=== PATIENT | male | born 1980 | race Caucasian/White ===

== ENCOUNTER 2019-04-24 11:53 | Emergency (ER) | payer MEDICAID, SELFPAY ==
[2019-04-24 11:55] VITALS: BP 147/90; PULSE 91; RESP 17; TEMP 37.2; O2SAT 97; BMI 26.9
--- NOTE | 2019-04-24 12:07 | CT_ITS ---
STUDY: CT FACIAL BONES WITHOUT CONTRAST REASON FOR EXAM: Male, 38 years old. Trauma RADIATION DOSAGE (If Supplied By Facility): CTDIvol = ( 29.38 ) mGy, DLP = ( 569.49 ) mGycm TECHNIQUE: The patient was scanned in a multi detector CT scanner. Sagittal and coronal images were reconstructed. Individualized dose optimization techniques were used for this CT. COMPARISON: None. FINDINGS: There is a displaced fracture at the right proximal aspect of the mandible with approximately 4 mm of medial displacement and 6 mm of overlap, as well as a mildly displaced fracture of the left anterolateral aspect of the mandible with approximately 1 to 2 mm of separation. There is facial soft tissue swelling. Visualized portions of the intracranial compartment are normal. Paranasal sinuses are normal in appearance. CT/Sinus/Facial Bone IMPRESSION: Displaced fracture of the right proximal aspect of the mandible as well as fracture of the left anterolateral aspect of the mandible as described above. Electronically Signed: oM Ha, at 13:43 EDT Tel , Service support ,
--- NOTE | 2019-04-24 12:07 | CT_ITS ---
STUDY: CT FACIAL BONES WITHOUT CONTRAST REASON FOR EXAM: Male, 38 years old. Trauma RADIATION DOSAGE (If Supplied By Facility): CTDIvol = ( 29.38 ) mGy, DLP = ( 569.49 ) mGycm TECHNIQUE: The patient was scanned in a multi detector CT scanner. Sagittal and coronal images were reconstructed. Individualized dose optimization techniques were used for this CT. COMPARISON: None. FINDINGS: There is a displaced fracture at the right proximal aspect of the mandible with approximately 4 mm of medial displacement and 6 mm of overlap, as well as a mildly displaced fracture of the left anterolateral aspect of the mandible with approximately 1 to 2 mm of separation. There is facial soft tissue swelling. Visualized portions of the intracranial compartment are normal. Paranasal sinuses are normal in appearance. CT/Coronals Sag Multi Obl 3-D Rec IMPRESSION: Displaced fracture of the right proximal aspect of the mandible as well as fracture of the left anterolateral aspect of the mandible as described above. Electronically Signed: Mo Ha, at 13:43 EDT Tel , Service support ,
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
[2019-04-24] MEDS: Ondansetron 4 MG/2 ML Vial IV (12:28)
[2019-04-24] MEDS: Morphine 4 MG/ML Syringe IV ×2 (12:28→14:17)
[2019-04-24 15:57] VITALS: RESP 18
== END 2019-04-24 15:57 | disposition short-term general hospital (02) ==
LOC: ED 12:43
PROVIDERS: Emergency Provider Emergency Medicine
DX: S02.69XA Fracture of mandible of other specified site, initial encounter for closed fracture (principal); Z72.0 Tobacco use; Y04.2XXA Assault by strike against or bumped into by another person, initial encounter; Y93.89 Activity, other specified; Y92.89 Other specified places as the place of occurrence of the external cause; Y99.8 Other external cause status
CPT/HCPCS: 70486; 76377; 96361; 96374; 96375; 96376; 99284; A4216; J0295; J2405

== ENCOUNTER 2021-04-13 07:00 | Outpatient (RCR) | payer MEDICAID, OTHER, SELFPAY ==
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
--- NOTE | 2021-06-26 11:15 | HP.PT.NRP ---
ZOYA HOLLIS was seen in my office for initial evaluation on 03/27/21. The following Plan of Care was established for this patient: Initial Frequency: 1x/Week Initial Duration: 4-6 Weeks Patient/Client Instruction: Educate patient on: Condition For the Purpose of:: To decrease pain, To increase ROM Therapeutic Exercise to Include: Strength training, Postural training, Flexibilty training For the Purpose of:: To decrease pain, To increase ROM, To improve muscle performance and motor function Manual Therapy Techniques to Include: Mobilization For the Purpose of:: To decrease pain, To increase ROM Thermo therapy (hot pack): Yes For the Purpose of:: To decrease pain This patient was last seen in our office 04/13/21. Pertinent comments regarding their Physical therapy will appear below: Pt seen for two visits and cancelled the last one without rescheduling. at this point, it has been over two months and I will discontinue due to nonattendance. At this point I will be discontinuing this patient from physical therapy. I would be happy to see this patient again in the future if found appropriate by the physician. Thank you! Yohan Nicholas, DPT, OCS, CSCS
== END 2021-04-13 19:00 | disposition home or self-care (01) ==
LOC: PT 07:00
DX: M16.12 Unilateral primary osteoarthritis, left hip (principal)
CPT/HCPCS: 97110; 97140; 97161

== ENCOUNTER 2022-08-02 15:36 | Observation (INO) | payer MEDICAID, SELFPAY ==
[2022-08-02] VITALS (7 sets, daily range): BP systolic 109–131; BP diastolic 66–85; PULSE 56–78; RESP 16–18; TEMP 36.7–37.5; O2SAT 96–99; BMI 24.3; BMI 25.0
--- NOTE | 2022-08-02 | IMM_PTH ---
PATIENT: ZOYA HOLLIS LOC: MS3 U#:[id number] AGE/SX: 42/M ROOM: MD302 RE08/02/[address]: Dr. James Estevez MD : 1980 BED: 1 DIS: 08/03/2022 SPEC #: [id number] RECD: 08/08/22 14:23 STATUS: PREET REQ #: [id number] LESLY: 08/02/22 00:[address]: James Estevez DEPT: IMMUNOHISTOCHEMISTRY RECD BY: Patricia Gamble ENTERED: 08/08/22 14:25 SP TYPE: IMMUNO OTHR DR: No Primary Care Phys Tissues: Appendix, NOS Procedures: Synapto (add) MSH2 (add) MLH-1 (add) MSH6 (add) Anti-PMS2 (add) CD45 (add) CD56 (add) CHROMO (add) CK20 (add) CK7 (add) CK8 (add) TORIBIO-2 (add) HER2 KEN (add) KI-67 (add) P53 (add) TTF1 (add) Pankeratin (initial) CDX2 (add) PHYSICIAN & INSTITUTION [place] [id number] SPECIMEN INFORMATION: Tissue Source: Appendix Clinical Info: Acute appendicitis Specimen Number: [id number] #[id number] CPT code: 02613, 59054 x17 METHODOLOGY: Deparaffinized sections of prefer/formalin-fixed tissue or PAP/DQ stained slides are incubated with monoclonal/polyclonal antibodies/oligonucleotide probes. Localization is made via biotin free immunoperoxidase method. Appropriate controls are performed and reacted as expected. Results on target cell population are indicated in the following table: RESULTS: ANTIBODY / CLONE RESULT Block 4 AE1-3 (AE1/AE3/PCK26) positive CK7 (OV-TL12/30) negative CK8 (25gqtwY60) positive CK20 (KS20.8) positive CD45 (RP2/18) negative CD56 (123C3.D5) negative Chromo (LK2H10) negative Synapto (polyclonal) negative TTF-1 (8G7G3/1) negative Ki-67 (30-9) positive, low Her-2neu (CB11) negative (0) TORIBIO-2 (SP21) positive CDX2 (MRL3696V) positive MLH-1 (M1) positive MSH2 (25D12) positive MSH6 (44) positive PMS2 (XNS1735) positive P53 (DO-7) negative These tests were developed and their performance characteristics determined by [facility]. They may not have been cleared or approved by the U.S. Food and Drug Administration. The FDA has determined that such clearance or approval is not necessary. The above immunohistochemical/dualISH markers are ordered and reviewed by the Pathologist. INTERPRETATION: Appendix, appendectomy: Invasive mucinous adenocarcinoma. Result of Microsatellite Instability Study: Negative (no loss of mismatch protein; no microsatellite instability detected). SJ:gadiel 08/12/2022
--- NOTE | 2022-08-02 | APP_PTH ---
PATIENT: ZOYA HOLLIS LOC: MS3 U#:[id number] AGE/SX: 42/M ROOM: ID302 RE08/02/[address]: Dr. James Estevez MD : 1980 BED: 1 DIS: 08/03/2022 SPEC #: [id number] RECD: 08/04/22 15:51 STATUS: PREET REShasta #: [id number] LESLY: 08/02/22 00:[address]: James Estevez DEPT: SURGICAL PATHOLOGY RECD BY: Shola Nichols ENTERED: 08/06/22 08:47 SP TYPE: APPENDIX OTHR DR: No Primary Care Phys Tissues: Appendix, NOS Procedures: Special Stain Group II Mucicarmine Stain (control) Surgery Specimen Level V HEADER OPERATION: Laparoscopic appendectomy PRE-OP DIAGNOSIS: Acute appendicitis TISSUE SUBMITTED: Appendix MICROSCOPIC DIAGNOSIS Appendix, appendectomy: Invasive mucinous adenocarcinoma. See cancer summary in the comment section. SJ:gadiel 08/12/2022 COMMENT Immunohistochemistry ([id number]) supports the above diagnosis. Mucin stain with matched control is used in the evaluation and tumor cells are positive for mucin. APPENDIX CANCER SUMMARY: Procedure - appendectomy Tumor site ? diffusely involving appendix. Histologic type ? mucinous adenocarcinoma. Histologic grade ? grade 1, well-differentiated Tumor size ? cannot be determined, almost involves full length of the appendix. Tumor deposits ? not identified Tumor extent ? tumor invades through muscularis propria into subserosal,,but does not extend to serosal surface. Lymphvascular invasion ? not identified Perineural invasion - not identified Margins ? proximal margin is free of tumor. Regional lymph nodes ? no lymph nodes are found. Distant metastasis ? not applicable Additional pathologic findings ? acute appendicitis and periappendicitis. Ancillary studies ? [id number]. PATHOLOGIC STAGE: pT3 pNx pMx The above summary is in compliance with [employer] [employer] (CAP) Cancer Protocols Checklist and [place] Joint Committee on Cancer (AJCC), Staging Manual, 7th Ed. This case is discussed with Dr. Estevez on 08/12/22. MICROSCOPIC DESCRIPTION Slides are reviewed. GROSS DESCRIPTION Received in fixative is one container labeled with the patient's name and designated appendix. The specimen consists of an appendix measuring 6 cm in length and up to 1 cm in diameter. The serosa is congested. No obvious perforation is identified. The lumen does not contain any fecalith. Back Strip Machine Operator sections are submitted in one cassette. / : 08/06/2022 The rest of the specimen is submitted in three more cassettes, 2-4. Cassette 2 contains the tips and most proximal portion (inked black), 3-4 contain rest of the specimen. / SJ: 08/07/2022 TC:0 CPT: 19768, 73948
--- NOTE | 2022-08-02 16:14 | CT_ITS ---
We are attempting to reach an attending provider to discuss findings. An addendum with communication details will be sent when the communication is complete. EXAM: CT ABDOMEN AND PELVIS WITHOUT INTRAVENOUS CONTRAST CLINICAL INDICATION: right flank pain TECHNIQUE: Helically acquired images were obtained of the abdomen and pelvis without intravenous contrast. This CT exam was performed using one or more of the following dose reduction techniques: automated exposure control, adjustment of the mA and/or kV according to patient size, and/or use of iterative reconstruction technique. This report was created using [employer] technology. COMPARISON: None. FINDINGS: LOWER THORAX: Unremarkable. Lung bases are clear. No cardiomegaly. No significant pericardial effusion. ABDOMEN: LIVER: Unremarkable. Homogeneous. GALLBLADDER AND BILE DUCTS: Unremarkable. No calcified gallstones. No gallbladder distention or wall edema. No intra- or extrahepatic biliary ductal dilation. PANCREAS: Unremarkable. No focal cystic mass. SPLEEN: Unremarkable. Normal size without focal cystic or solid mass. ADRENALS: Unremarkable. No nodules. KIDNEYS AND URETERS: Unremarkable. Normal renal size and position. No hydronephrosis. STOMACH AND BOWEL: Unremarkable. No stomach or bowel distention. No focal inflammatory change. PELVIS: APPENDIX: The appendix is enlarged measuring 9 mm with surrounding inflammation compatible with acute appendicitis. There is no abscess or perforation. BLADDER: Unremarkable. REPRODUCTIVE: Unremarkable as visualized. No mass. ABDOMEN and PELVIS: INTRAPERITONEAL SPACE: Unremarkable. No ascites or other fluid collection. No free air. BONES/JOINTS: Beam hardening artifact from a left hip prosthesis. No suspicious lytic or blastic abnormality. SOFT TISSUES: Unremarkable. No discrete abdominal or pelvic wall hernia. VASCULATURE: Unremarkable. Abdominal aorta is non-dilated. LYMPH NODES: Unremarkable. No enlarged lymph nodes. CT/Abdomen/Pelvis without Cont IMPRESSION: Enlarged appendix with surrounding inflammation compatible with acute appendicitis. There is no abscess or perforation. Electronically Signed: Jonathan Salcedo MD at 17:07 EDT ,
[2022-08-02] MEDS: Morphine 4 MG/ML Syringe IV (16:25)
[2022-08-02] MEDS: Ketorolac 30 MG/ML Syringe IV (16:25)
[2022-08-02] MEDS: 0.9% Normal Saline 1,000 ML 1000 ML IV (16:25)
[2022-08-02] MEDS: Ondansetron 4 MG/2 ML Vial IV (16:25)
--- NOTE | 2022-08-02 16:26 | EX.ED.DYSGE1 ---
HPI History of Present Illness Chief Complaint: Abd Pain Informant: patient Onset/Context/Timing Onset: Today Context: Sudden Onset Current Severity: Moderate Maximum Severity: Severe Narrative Narrative: Patient presents with rather abrupt onset of right lower quadrant abdominal pain that started earlier today. He states he did have some pain in his back as well. He did have some nausea and vomiting associated with pain. He denies fever or chills. PFSH PFSH Allergy/AdvReac Type Severity Reaction Status Date / Time No Known Allergies Allergy Verified 04/24/19 11:55 Surgical History History of right hip replacement Social History Smoking Status: Current every day smoker tobacco type: cigarettes ROS ROS ED Constitutional Constitutional ED: Denies chills or fever(s) Eyes Eyes: Denies change in vision or discharge from eye(s) ENT ENT ED: Denies discharge from eye(s), rhinorrhea or sore throat Cardiovascular Cardiovascular: Denies chest pain or palpitations Respiratory/Chest Respiratory/Chest: Denies cough or dyspnea Gastrointestinal Gastrointestinal: Reports abdominal pain, nausea and vomiting; Denies diarrhea Genitourinary Genitourinary ED: Denies difficulty urinating or dysuria Musculoskeletal Musculoskeletal: Reports back pain; Denies extremity pain Integumentary Denies Abrasions or rash Neurologic Neurologic: Denies headache(s) or weakness Psychiatric Psychiatric: Denies anxiety or depression Allergic/Immunologic Allergic/Immunologic ED: Denies lip swelling or urticaria EXAM Physical Exam Const Vital Signs: 08/02/22 15:38 Temperature 98.2 F Temperature Source Oral Pulse Rate 72 Respiratory Rate 16 Blood Pressure 129/81 H Blood Pressure Mean 97 Pulse Ox 98 Oxygen Delivery Method Room Air Positive well nourished and well developed General Appearance ED: well developed HEENT Reports normocephalic and head/scalp atraumatic Eyes PERRL and EOMs intact bilaterally Neck supple Chest Wall inspection of chest normal and palpation of chest normal Resp normal respiratory effort and clear to auscultation bilaterally Cardio regular rate and regular rhythm GI Palpation: soft and tender RLQ Extremity normal to inspection Neuro oriented x3 and no sensory deficits noted Sensorium / Orientation: alert Motor Exam: strength 5/5 throughout Psych mental status grossly normal Skin no rashes or lesions noted MDM MDM MDM Narrative Medical decision making narrative: Patient given morphine, Toradol, Zofran, IV fluids. Lab work obtained along with urinalysis and CT scan. Lab Data Attestation: I reviewed the patient's lab results. Labs: Laboratory Results - last 24 hr 08/02/22 08/02/22 16:20 16:20 WBC 18.0 H RBC 4.78 Hgb 15.3 Hct 43.3 MCV 90.6 MCH 32.0 MCHC 35.3 RDW Std Deviation 39.8 RDW Coeff of Melinda 11.9 Plt Count 227 MPV 9.7 Immature Gran % (Auto) 0.400 Neut % (Auto) 84.8 H Lymph % (Auto) 8.3 L [place] % (Auto) 5.9 Eos % (Auto) 0.4 Baso % (Auto) 0.2 Absolute Neuts (auto) 15.2 H Absolute Lymphs (auto) 1.50 Nucleated RBC % 0 Sodium 140 Potassium 3.6 Chloride 107 Carbon Dioxide 25.0 Anion Gap 8 BUN 10 Creatinine 1.06 Estim Creat Clear Calc 94.69 Est GFR (MDRD) Af Amer 99 Est GFR (MDRD) Non-Af 82 BUN/Creatinine Ratio 9.4 L Glucose 93 Calcium 9.4 Total Bilirubin 0.90 Direct Bilirubin 0.18 AST 18 ALT 23 Alkaline Phosphatase 68 Total Protein 7.0 Albumin 4.1 Globulin 2.9 Radiography Diagnostic Testing: Clinical Impression(s) from Imaging Studies Abdomen/Pelvis CT 08/02/22 16:14 IMPRESSION: Enlarged appendix with surrounding inflammation compatible with acute appendicitis. There is no abscess or perforation. Electronically Signed: Jonathan Salcedo MD at 17:07 EDT , ADDENDUM: 08/02/22 3035 IMPRESSION: Enlarged appendix with surrounding inflammation compatible with acute appendicitis. There is no abscess or perforation. N.B. : The above Results were Read Back by Jonathan Salcedo MD to Dr. Flor MD, and understanding confirmed on 08/02/2022 17:12:45 (ET). Electronically Signed: Jonathan Salcedo MD at 17:07 EDT , Treatment and Re-Evaluation Narrative: CBC significant for white count of 18 with left shift. Chemistry studies and LFTs normal. CT scan reveals an enlarged appendix with surrounding inflammation consistent with acute appendicitis. Test results discussed with patient as well as at bedside. I spoke with Dr. Estevez who will be in to see the patient. Discharge Plan Triage Chief Complaint: Abd Pain ED Provider: Cindy Ray Dx/Rx/DC Orders Primary Care Provider: Care Physician,No Primary Referrals: Care Physician,No Primary [Primary Care Provider] - Disposition Disposition: Acute Care Hospital [facility]
[2022-08-02 16:29] LABS: Absolute Neutrophil Count 15.2 X10^3/uL (2.0-7.7); Basophil# 0.04 X10^3/uL; Basophil% 0.2 % (0-1); Eosinophil# 0.08 X10^3/uL; Eosinophils% 0.4 % (0-5); Hematocrit 43.3 % (40-54); Hemoglobin 15.3 g/dL (13.0-16.5); Lymphocyte % 8.3 % (19-41); Mean Corp Hgb Conc 35.3 g/dL (32-36); Mean Corpuscular Volume 90.6 fL (80-94); Mean Platelet Vol. 9.7 fl (6.2-12.0); Monocyte# 1.07 X10^3/uL; Monocyte% 5.9 % (0-10); NRBC Flagged by Analyzer 0 % (0-5); Neutrophil # 15.24 X10^3/uL (2.7-7.7); Neutrophil % 84.8 % (47-70); Platelet Count 227 K/mm3 (150-450); RBC Distribution Width CV 11.9 % (11.6-14.6); RBC Distribution Width SD 39.8 fl (35.1-43.9); Red Blood Count 4.78 M/mm3 (4.6-6.2)
[2022-08-02 16:53] LABS: AST(SGOT) 18 U/L (15-37); Alanine Aminotransfer ALT/SGPT 23 U/L (16-61); Albumin, Serum 4.1 g/dL (3.2-5.0); Alkaline Phosphatase 68 U/L (45-117); Anion Gap 8 (5-15); BUN 10 mg/dL (7-18); BUN/Creat Ratio 9.4 RATIO (10-20); Bilirubin, Direct 0.18 mg/dL (0.00-0.30); Calcium,Total 9.4 mg/dL (8.5-10.1); Chloride 107 mmol/L (98-107); Creatinine, Serum 1.06 mg/dL (0.70-1.30); EST Glomerular Filtration Rate 82 mL/min (>60); Est Glom Filt Rate - Afr Amer 99 mL/min (>60); Estimated Creatinine Clearance 94.69 ml/min; Globulin 2.9 g/dL (2.2-4.2); Glucose 93 mg/dL (74-106); Potassium 3.6 mmol/L (3.5-5.1); Sodium Level 140 mmol/L (136-145)
[2022-08-02] MEDS: 0.9% Normal Saline 1,000 ML 150 ML IV (17:31)
--- NOTE | 2022-08-02 17:43 | CON.PCM.SX_ITS ---
Assessment & Plan Assessment/Plan (1) Acute appendicitis: PLAN: Plan My plan is to perform a laparoscopic appendectomy. I have counseled the patient as to the risks of the procedure, including but not limited to: infection, bleeding, injury to any blood vessels/nerves, injury to any bowel/bladder, injury to any intraabdominal organs such as the liver/spleen, perforation of the GI tract, intraabdominal abscess/bleeding, incisional hernias, injury to the common bile duct/biliary ducts, injury to the spermatic cord/vessels/testicles, recurrence of hernia(s), complications of anesthesia, etc. The patient verbalizes understanding. HPI Consult Data Date of Consult: 08/02/22 HPI Narrative HPI Narrative: ZOYA HOLLIS, is a 42 M who presents abrupt onset of right lower quadrant abdominal pain. Started earlier today get progressively worse. Goes into his back as well. He has had some nausea and vomiting with this as well. He denies any fever or chills.CAT scan was obtained which showed an enlarged appendix with surrounding inflammation compatible with acute appendicitis no abscess or perforation was identified. In reviewing the CAT scan this does look like a retrocecal appendicitis [facility] Allergy/AdvReac Type Severity Reaction Status Date / Time No Known Allergies Allergy Verified 04/24/19 11:55 Surgical History History of right hip replacement Social History Smoking Status: Current every day smoker tobacco type: cigarettes Physical Exam Const alert, oriented x3 and healthy appearing HEENT normocephalic and head/scalp atraumatic Eyes PERRL and EOMs intact bilaterally Resp clear to auscultation bilaterally Cardio Rate: regular rate Rhythm: regular rhythm GI Palpation: tender RLQ and McBurney's point and guarding Lab / Micro Data Result Diagrams: 08/02/22 16:20 08/02/22 16:20 Labs: Laboratory Results - last 24 hr 08/02/22 16:20: WBC 18.0 H, RBC 4.78, Hgb 15.3, Hct 43.3, MCV 90.6, MCH 32.0, MCHC 35.3, RDW Std Deviation 39.8, RDW Coeff of Melinda 11.9, Plt Count 227, MPV 9.7, Immature Gran % (Auto) 0.400, Neut % (Auto) 84.8 H, Lymph % (Auto) 8.3 L, [place] % (Auto) 5.9, Eos % (Auto) 0.4, Baso % (Auto) 0.2, Absolute Neuts (auto) 15.2 H, Absolute Lymphs (auto) 1.50, Nucleated RBC % 0 08/02/22 16:20: Sodium 140, Potassium 3.6, Chloride 107, Carbon Dioxide 25.0, Anion Gap 8, BUN 10, Creatinine 1.06, Estim Creat Clear Calc 94.69, Est GFR (MDRD) Af Amer 99, Est GFR (MDRD) Non-Af 82, BUN/Creatinine Ratio 9.4 L, Glucose 93, Calcium 9.4, Total Bilirubin 0.90, Direct Bilirubin 0.18, AST 18, ALT 23, Alkaline Phosphatase 68, Total Protein 7.0, Albumin 4.1, Globulin 2.9 Radiology Impression Abdomen/Pelvis CT 08/02/22 16:14 IMPRESSION: Enlarged appendix with surrounding inflammation compatible with acute appendicitis. There is no abscess or perforation. Electronically Signed: Jonathan Salcedo MD at 17:07 EDT , ADDENDUM: 08/02/22 1719 IMPRESSION: Enlarged appendix with surrounding inflammation compatible with acute appendicitis. There is no abscess or perforation. N.B. : The above Results were Read Back by Jonathan Salcedo MD to Dr. Flor MD, and understanding confirmed on 08/02/2022 17:12:45 (ET). Electronically Signed: Jonathan Salcedo MD at 17:07 EDT ,
[2022-08-02 17:55] LABS: Red Blood Cells-Urine 0 SEEN /hpf (0-5)
[2022-08-02 17:59] LABS: Color, Urine Yellow (Yellow); Glucose, Dipstick Normal (Normal); Leukocyte Esterase-Dipstick 25 /ul (Negative); Nitrite-Dipstick Negative (Negative); Occult Blood-Urine Negative /ul (Negative); Protein-Dipstick 30 mg/dl (Negative); Urine Bilirubin Dipstick Negative (Negative); Urine Clarity Clear (Clear); Urine Urobilinogen 1 mg/dl (Normal)
[2022-08-02 18:03] LABS: Ketone-Dipstick 150 mg/dl (Negative)
[2022-08-02 18:13] LABS: Squamous Epithelial Cells - UA 0-5 SEEN /hpf (0-5); White Blood Cells 0-5 SEEN /hpf (0-5)
[2022-08-02 18:14] LABS: Bacteria 1+ /hpf (None Seen); Mucous, Urine 3+ /hpf (<or=2+)
[2022-08-02] MEDS: Bupivacaine 0.25% 30 ML Vial (19:58)
--- NOTE | 2022-08-02 20:01 | PCM.OPRPT ---
Problems Associated Problem List Diagnoses (1) Acute appendicitis: Report of Operation Date of Procedure: 08/02/22 Pre-Operative Diagnosis: Acute appendicitis Post-Operative Diagnosis: Same with pus (retrocecal appendicitis) Surgery/Procedure Performed:: Laparoscopic appendectomy Surgeon: James Estevez van helper: Gonzalez Hall Type of Anesthesia: General Anesthesiologist: Yohan Mota Specimen's removed: Appendix Drains: None Estimated Blood Loss (mL): < 25 cc Description of Procedure: Patient was brought into the operating room. Placed in the supine position. Under excellent general the abdomen was sterilely prepped and draped in usual fashion. Local was injected infraumbilically. Dissection was carried down to the fascia. The fascia grasped with a Emily. Varies needle was placed inside the abdomen. The abdomen was insufflated to 15 torr. A 10/12 trocar was placed. Patient was placed in the headdown and rotated to the left. Suprapubic #5 trochars placed, left lower quadrant #5 trocar was placed. Both of these placed under direct visualization without injury to underlying structures. Patient was noted to have a retrocecal appendix I took down the cecum ran into the purulent material. There really was not much and it aspirated and irrigated quite easily without contamination. The base of the appendix was completely clean and so I started down here and I created a window in the mesoappendix. I came across the appendix with a 45 linear cutter. I then used the Enseal to take the appendix off the retrocecal area in the cecum. I had good pneumostasis. I placed the specimen in a specimen bag delivered through the umbilical port without difficulty. I flushed and irrigated the right lower quadrant whole surface down there was pretty raw I placed a 4 x 4 and there and held pressure for 5 minutes this did help quite a bit. I decided that it was best to put some Nasra in the area and after I done this no bleeding was coming through the Nasra and I felt confident that I had no bleeding here. I retrieved all the irrigant. I removed the trochars under direct visualization. Good mistakes was noted. Close the fascia the umbilical port with an 0 Vicryl. Skin incisions were closed with subcuticular stitches of 4-0 Monocryl. Steri-Strips were applied sterile dressings were applied and the patient tolerated the procedure well. Admit VTE Documentation VTE Present on Admission: No VTE Mechan Device Prophylaxis: SCD's VTE Pharm Prophylaxis ordered?: No Reason prophylaxis not ordered:: Treatment Not Indicated
[2022-08-02] MEDS: 0.9% Normal Saline 1,000 ML 75 ML IV (21:04)
[2022-08-02] MEDS: oxyCODONE 5 MG Tablet PO (22:05)
--- NOTE | 2022-08-02 22:12 | NURSING ---
Found that pt SO placed pt's nicotine patch from home on him. 21mg. Dr Estevez made aware.
[2022-08-03 01:13] VITALS: BP 117/67; PULSE 79; RESP 16; TEMP 36.8; O2SAT 97
[2022-08-03] MEDS: oxyCODONE 5 MG Tablet PO (02:06)
[2022-08-03 05:11] VITALS: BP 116/74; PULSE 71; RESP 16; TEMP 37.1; O2SAT 95
[2022-08-03 07:06] LABS: Absolute Lymphocyte Count 0.81 X10^3/uL (0.83-4.51); Basophil# 0.03 X10^3/uL; Basophil% 0.1 % (0-1); Hematocrit 42.2 % (40-54); Hemoglobin 14.4 g/dL (13.0-16.5); Lymphocyte # 0.81 X10^3/ul (0.83-4.51); Lymphocyte % 3.2 % (19-41); Mean Corp Hgb Conc 34.1 g/dL (32-36); Mean Corpuscular Volume 93.8 fL (80-94); Mean Platelet Vol. 10.2 fl (6.2-12.0); Monocyte# 0.91 X10^3/uL; Monocyte% 3.6 % (0-10); NRBC Flagged by Analyzer 0 % (0-5); Neutrophil # 22.97 X10^3/uL (2.7-7.7); Neutrophil % 91.6 % (47-70); POSITIVE DIFFERENTIAL YES; Platelet Count 214 K/mm3 (150-450); RBC Distribution Width SD 41.9 fl (35.1-43.9); White Blood Count 25.1 K/mm3 (4.4-11.0)
[2022-08-03 07:12] VITALS: BP 114/77; PULSE 77; RESP 14; TEMP 36.8; O2SAT 95
--- NOTE | 2022-08-03 07:12 | PN.SURG_ITS ---
Subjective Subjective And feels great. Minimal discomfort in the back of his shoulder blade. No nausea or vomiting. Objective Data Objective Data Dressings are dry abdomen is soft no rebound guarding or peritoneal signs Vital Signs: Vital Signs Temp Pulse Resp BP Pulse Ox O2 Del Method 98.7 F 71 16 116/74 95 Room Air 08/03/22 05:11 08/03/22 05:11 08/03/22 05:11 08/03/22 05:11 08/03/22 05:11 08/03/22 05:11 Oxygen Delivery Method Room Air Weight: 174 lb Body Mass Index (BMI) 25.0 Intake & Output: Intake and Output for Last 24 Hours 08/01/22 08/02/22 08/03/22 23:59 23:59 23:59 Intake Total 1632.5 / 1632.5 50 50 Balance 1632.5 / 1632.5 Lab / Micro Data Result Diagrams: 08/02/22 16:20 08/02/22 16:20 Labs: Laboratory Results - last 24 hr 08/02/22 16:20: WBC 18.0 H, RBC 4.78, Hgb 15.3, Hct 43.3, MCV 90.6, MCH 32.0, MCHC 35.3, RDW Std Deviation 39.8, RDW Coeff of Melinda 11.9, Plt Count 227, MPV 9.7, Immature Gran % (Auto) 0.400, Neut % (Auto) 84.8 H, Lymph % (Auto) 8.3 L, [place] % (Auto) 5.9, Eos % (Auto) 0.4, Baso % (Auto) 0.2, Absolute Neuts (auto) 15.2 H, Absolute Lymphs (auto) 1.50, Nucleated RBC % 0 08/02/22 16:20: Sodium 140, Potassium 3.6, Chloride 107, Carbon Dioxide 25.0, Anion Gap 8, BUN 10, Creatinine 1.06, Estim Creat Clear Calc 94.69, Est GFR (MDRD) Af Amer 99, Est GFR (MDRD) Non-Af 82, BUN/Creatinine Ratio 9.4 L, Glucose 93, Calcium 9.4, Total Bilirubin 0.90, Direct Bilirubin 0.18, AST 18, ALT 23, Alkaline Phosphatase 68, Total Protein 7.0, Albumin 4.1, Globulin 2.9 08/02/22 17:53: Urine Color Yellow, Urine Clarity Clear, Urine pH 8.0, Ur Specific Metcalf 1.010, Urine Protein 30 H, Urine Glucose (UA) Normal, Urine Ketones 150 A*, Urine Occult Blood Negative, Urine Nitrite Negative, Urine Bilirubin Negative, Urine Urobilinogen 1 H, Ur Leukocyte Esterase 25 H, Urine RBC 0 SEEN, Urine WBC 0-5 SEEN, Ur Squamous Epith Cells 0-5 SEEN, Urine Bacteria 1+, Urine Mucus 3+ Radiography Diagnostic Testing: Radiology Impression Abdomen/Pelvis CT 08/02/22 16:14 IMPRESSION: Enlarged appendix with surrounding inflammation compatible with acute appendicitis. There is no abscess or perforation. Electronically Signed: Jonathan Salcedo MD at 17:07 EDT , ADDENDUM: 08/02/22 1719 IMPRESSION: Enlarged appendix with surrounding inflammation compatible with acute appendicitis. There is no abscess or perforation. N.B. : The above Results were Read Back by Jonathan Salcedo MD to Dr. Flor MD, and understanding confirmed on 08/02/2022 17:12:45 (ET). Electronically Signed: Jonathan Salcedo MD at 17:07 EDT , Assessment & Plan Assessment/Plan (1) Acute appendicitis: PLAN: Okay to discharge today.
[2022-08-03 07:16] LABS: Differential Indicated SCAN CRITERIA MET
[2022-08-03 07:32] VITALS: BP 114/77; PULSE 77; RESP 14; TEMP 36.8; O2SAT 95
[2022-08-03 07:34] LABS: Anion Gap 8 (5-15); BUN 13 mg/dL (7-18); BUN/Creat Ratio 11.7 RATIO (10-20); Calcium,Total 8.2 mg/dL (8.5-10.1); Chloride 107 mmol/L (98-107); Creatinine, Serum 1.11 mg/dL (0.70-1.30); EST Glomerular Filtration Rate 78 mL/min (>60); Est Glom Filt Rate - Afr Amer 94 mL/min (>60); Estimated Creatinine Clearance 90.43 ml/min; Glucose 166 mg/dL (74-106); Sodium Level 138 mmol/L (136-145)
--- NOTE | 2022-08-03 09:05 | DCINST_ITS ---
Discharge Instructions Procedure Appendectomy Diet Discharge Diet: Light diet - advance as tolerated (if you have questions about your diet instructions, please talk to you doctor.) Activity Discharge Activity: May Not Drive (for 3-5 days or while taking narcotic pain meds.) May shower in (days): 1 Dressing / Incision Call your doctor if your incision/area has: Continuous Slow Oozing, Sudden Increased Bleeding, Increased Pain/ Swelling, Increased Redness and Foul Smelling Discharge Call your doctor if you observe: Fever of 101 or Higher Suture Line Care: Avoid Pulling/Pushing and Avoid Pinching/Bending Additional Dressing/Incision Instructions:: Keep dressing clean and dry. Change or remove dressing in 2 days. Leave steri strips for 1 week. May protect with a gauze bandaid. Follow Up Care Please Follow Up With: Lauren Mckenna PA-C When: Call office to schedule an appointment to be seen in 1 week. Test Results: Test results from this visit will be discussed in further detail at your follow- up appointment, if applicable. Discharge Plan Admission Admit Date/Time: 08/02/22 18:04 Attending Provider: James Estevez Primary Care Provider: Care Physician,Mey Primary Discharge Orders/Prescriptions Prescriptions: New oxycodone-acetaminophen [Percocet] 5-325 mg tablet 1 tab PO Q4H PRN (Reason: pain) 5 Days Qty: 20 0RF amoxicillin-pot clavulanate [Augmentin] 500-125 mg tablet 1 tab PO Q12H Qty: 10 0RF Referrals / Follow Up: Care Physician,No Primary [Primary Care Provider] - Lauren Mckenna PA-C [Med Staff - [facility] Practice [facility]] - Disposition Disposition (needs filled in before D/C Order can be placed): Home, Self Care
[2022-08-03 09:26] LABS: Differential Comment SCANNED
== END 2022-08-03 08:52 | disposition home or self-care (01) ==
LOC: ED 16:17 → SDC 17:42 → MS3 18:09
PROVIDERS: Admitting Provider Surgery; Emergency Provider Emergency Medicine; Visit Provider Surgery
PROC: 0DTJ4ZZ Resection of Appendix, Percutaneous Endoscopic Approach (ICD-10-PCS; CPT 44970; principal; 2022-08-02 19:00)
DX: K35.80 Unspecified acute appendicitis (principal); F17.210 Nicotine dependence, cigarettes, uncomplicated
CPT/HCPCS: 44970; 00840; 88304; C1760; 36415; 74176; 80048; 80076; 81001; 85025; 88307; 88313; 88341; 88342; 96361; 96365; 96366; 96375; 99218; 99284; J7030; A4216; G0378; J2405